=== PATIENT | female | born 1995 | race Two or more races ===

== ENCOUNTER → 2017-08-26 | Outpatient (REF) | payer OTHER | LOC: M SFHCLERA 19:12 | DX: R30.0 Dysuria (principal) ==

== ENCOUNTER → 2018-12-20 | Outpatient (CLI) | payer OTHER ==
--- NOTE | 2018-12-20 11:59 | REP ---
CT LEFT WRIST: Axial CT of the left wrist performed without the use of intravenous contrast. Sagittal and coronal reconstruction images are performed. There appears to be a vertical nondisplaced fracture of the medial aspect of the hamate bone. There is a small, thin fracture fragment medially, which is not displaced. No other acute fracture or dislocation is seen. No intrinsic osseous pathology is seen. Surrounding soft tissue structures are grossly unremarkable. There is a surround cast external to the patient. Electronically Signed by Serge Cooney MD 12/20/2018 04:38 P
== END ==
LOC: M RAD 11:11
PROVIDERS: ATTEND Orthopaedic Surgery Sports Medicine
DX: S62.14 Fracture of body of hamate [unciform] bone (principal); X58.XXXA Exposure to other specified factors, initial encounter; Y92.89 Other specified places as the place of occurrence of the external cause